=== PATIENT | male | born 1960 | race Caucasian/White ===

== ENCOUNTER 2020-03-13 12:45 | Day surgery (SDC) | payer BC ==
[2020-03-10 17:13] LABS: ALBUMIN 4.2 g/dL (3.4-5.0); ANION GAP 6 mmol/L (5-15); CALCIUM 8.7 mg/dL (8.5-10.1); CHLORIDE 104 mmol/L (98-107)
[2020-03-10 17:17] LABS: ALANINE AMINOTRANSFERASE 42 U/L (12-78); ALKALINE PHOSPHATASE 67 U/L (45-117); BILIRUBIN,TOTAL 0.5 mg/dL (0.2-1.0); CREATININE 0.89 mg/dL (0.7-1.3); TOTAL PROTEIN 7.4 g/dL (6.4-8.2)
[~2020-03-13] VITALS: Ht 172.7 cm; Wt 70.0 kg
[~2020-03-13 12:45] MED LIST: ASPI-496 PO; ASPI-650 PO; BUPIVACAINE/PF-EPI 0.5% 1:200K ONE; CHLO25TA PO; DOCU100C33 PO; HYDR-3246 PO; LIDOCAINE 1%-EPI 1:100K, 20ML ONE; LOVA40TA2 PO; MELO15TA24 PO; MONT10TA11 PO; MULT-108 PO; TAMS-11 PO; TROS60CA3 PO; VALS160T3 PO; VALS80TA3 PO
[2020-03-13] MEDS ORDERED: LACTATED RINGERS 1,000 ML IV SCH (12:56)
[2020-03-13] MEDS ORDERED: CHLORHEXIDINE 15 ML UDC MM ONE (13:00)
[2020-03-13 13:09] VITALS: BP 122/83
[2020-03-13] MEDS ORDERED: CHLORHEXIDINE 15 ML UDC ONE (13:14)
[2020-03-13] MEDS ORDERED: FENTANYL PF 100 MCG/2ML ONE (13:19)
[2020-03-13] MEDS ORDERED: MIDAZOLAM 1 MG/ML, 2ML ONE (13:19)
[2020-03-13] MEDS ORDERED: ROCURONIUM 10 MG/ML,10ML ONE (14:56)
[2020-03-13] MEDS ORDERED: SUCCINYLCHOLINE 20 MG/ML, 10ML ONE (14:56)
[2020-03-13] MEDS ORDERED: ALBUTEROL SULFATE 2.5 MG/3 ML NPPB PRN (16:30)
[2020-03-13] MEDS ORDERED: MEPERIDINE/PF 25MG/0.5ML IVPush PRN (16:30)
[2020-03-13] MEDS ORDERED: hydrALAzine 20 MG/ML, 1ML IV PRN (16:30)
[2020-03-13] MEDS ORDERED: OXYcodone 5 MG/5 ML ORAL.SOL UDC PO PRN (16:30)
[2020-03-13] MEDS ORDERED: ACETAMINOPHEN 325 MG TABLET PO PRN (16:30)
[2020-03-13] MEDS ORDERED: LABETALOL 5MG/ML, 20ML IV PRN (16:30)
[2020-03-13] MEDS ORDERED: PROMETHAZINE 25 MG/ML, 1ML IVPush PRN (16:30)
[2020-03-13] MEDS ORDERED: LORazepam 2 MG/ML, 1ML IVPush PRN (16:30)
[2020-03-13] MEDS ORDERED: HYDROmorphone 1 MG/ML, 1ML INJ IVPush PRN (16:30)
[2020-03-13] MEDS ORDERED: FENTANYL PF 100 MCG/2ML IV PRN (16:30)
[2020-03-13] MEDS ORDERED: BUPIVACAINE/PF 0.5% ONE (16:45)
[2020-03-13] MEDS ORDERED: DEXAMETHASONE 4 MG/ML, 1ML ONE (16:45)
[2020-03-13] MEDS ORDERED: ONDANSETRON 2MG/ML, 2ML ONE (16:45)
[2020-03-13] MEDS ORDERED: LIDOCAINE-MPF 2% ,5ML ONE (16:45)
[2020-03-13] MEDS ORDERED: CEFAZOLIN 1,000 MG ONE (16:45)
[2020-03-13] MEDS ORDERED: PROPOFOL 10 MG/ML, 20ML ONE (16:45)
[2020-03-13] MEDS ORDERED: LIDOCAINE/PF 1%-EPI 1:200K, 30 ML ONE (17:06)
== END 2020-03-13 19:05 | disposition home or self-care (01) ==
LOC: OUT 12:45 → EDSTATUS 15:30 → OUT 19:05
PROVIDERS: ATTEND Orthopaedic Surgery
DX: S46.011A Strain of muscle(s) and tendon(s) of the rotator cuff of right shoulder, initial encounter (principal); Z20.828 Contact with and (suspected) exposure to other viral communicable diseases; G89.18 Other acute postprocedural pain; S46.111A Strain of muscle, fascia and tendon of long head of biceps, right arm, initial encounter; S43.431A Superior glenoid labrum lesion of right shoulder, initial encounter; M75.41 Impingement syndrome of right shoulder; M19.011 Primary osteoarthritis, right shoulder; M65.811 Other synovitis and tenosynovitis, right shoulder; M75.51 Bursitis of right shoulder; I10 Essential (primary) hypertension; E78.5 Hyperlipidemia, unspecified; N40.0 Benign prostatic hyperplasia without lower urinary tract symptoms; Z79.82 Long term (current) use of aspirin; Z79.899 Other long term (current) drug therapy; Z82.49 Family history of ischemic heart disease and other diseases of the circulatory system; X50.1XXA Overexertion from prolonged static or awkward postures, initial encounter; Y93.89 Activity, other specified; Y92.89 Other specified places as the place of occurrence of the external cause; Y99.8 Other external cause status
CPT/HCPCS: 29823; 29824; 29826; 29827; 36415; 64415; 80053; 87635; 93005; C1713; J0330; J0690; J1100; J2250; J2405; J2704; J3010; J3490; J7120